=== PATIENT | female | born 1970 | race Caucasian/White ===

== ENCOUNTER 2022-05-29 09:29 | Emergency (ER) | payer MEDICARE, MEDICAID ==
[2022-05-29] MEDS ORDERED: Metoclopramide 10 MG/2 ML SDV IVPUSH ONE (10:08)
[2022-05-29] MEDS ORDERED: Pantoprazole 40 MG Vial IVPUSH ONE (10:09)
[2022-05-29] MEDS ORDERED: Dextrose 5%-Lactated Ringers 1,000 ML IV SCH (10:15)
[2022-05-29 10:35] LABS: ESTIMATED GFR 89 mL/min (>60)
[2022-05-29] MEDS ORDERED: Alum Hydrox/Mag Hydrox/Simeth 30 ML, Lidocaine 2% 15 ML PO ONE ×2 (11:00)
[2022-05-29] MEDS ORDERED: Famotidine 20 MG Tab PO ONE (11:29)
== END 2022-05-29 12:15 | disposition home or self-care (01) ==
LOC: JD.ED 09:29
DX: K31.89 Other diseases of stomach and duodenum (principal); R10.13 Epigastric pain; I10 Essential (primary) hypertension; J44.9 Chronic obstructive pulmonary disease, unspecified; Z88.0 Allergy status to penicillin
CPT/HCPCS: 36415; 80053; 83690; 83735; 85025; 85610; 85730; 86140; 93005; 96361; 96374; 96375; 99284; A9270; C9113; J2765; J7121

== ENCOUNTER 2022-10-20 10:33 | Emergency (ER) | payer MEDICAID, MEDICARE ==
[2022-10-20] MEDS ORDERED: Ondansetron 4 MG/2 ML SDV IVPUSH ONE (11:29)
[2022-10-20] MEDS ORDERED: Sodium Chloride 0.9% 10 ML Syringe FLUSH PRN (11:29)
[2022-10-20] MEDS ORDERED: Sodium Chloride 0.9% 1,000 ML IV SCH (11:30)
[2022-10-20 12:03] LABS: CORONAVIRUS COVID-19 NAA NEGATIVE (NEGATIVE)
[2022-10-20 12:12] LABS: ESTIMATED GFR 77 mL/min (>60)
== END 2022-10-20 14:23 | disposition home or self-care (01) ==
LOC: JD.ED 10:33
DX: J06.9 Acute upper respiratory infection, unspecified (principal); J44.9 Chronic obstructive pulmonary disease, unspecified; I10 Essential (primary) hypertension; Z88.0 Allergy status to penicillin; Z88.5 Allergy status to narcotic agent; Z90.49 Acquired absence of other specified parts of digestive tract; Z20.822 Contact with and (suspected) exposure to COVID-19
CPT/HCPCS: 0241U; 36415; 71045; 80053; 81001; 83735; 84443; 85025; 86140; 96361; 96374; 99284; J2405; J3490; J7030

== ENCOUNTER 2023-01-22 19:43 | Emergency (ER) | payer MEDICARE | END 2023-01-22 21:31 | disposition home or self-care (01) | LOC: JD.ED 19:43 | DX: M10.9 Gout, unspecified (principal); I10 Essential (primary) hypertension; J44.9 Chronic obstructive pulmonary disease, unspecified; Z88.0 Allergy status to penicillin; Z88.5 Allergy status to narcotic agent; Z79.899 Other long term (current) drug therapy | CPT/HCPCS: 99283 ==

== ENCOUNTER 2023-06-30 14:34 | Emergency (ER) | payer MEDICAID, MEDICARE ==
[2023-06-30] MEDS ORDERED: Sucralfate Suspension 1 GM/10 ML Cup PO ONE (15:40)
[2023-06-30] MEDS ORDERED: Ondansetron 4 MG Tab.DIS PO ONE (15:40)
== END 2023-06-30 17:00 | disposition home or self-care (01) ==
LOC: JD.ED 14:34
DX: R10.13 Epigastric pain (principal); I10 Essential (primary) hypertension; J44.9 Chronic obstructive pulmonary disease, unspecified; Z88.0 Allergy status to penicillin; Z88.5 Allergy status to narcotic agent
CPT/HCPCS: 99283; A9270

== ENCOUNTER 2024-03-09 22:02 | Observation (INO) | payer MEDICARE ==
[2024-03-09] MEDS ORDERED: Sodium Chloride 0.9% 10 ML Syringe FLUSH PRN (22:45)
[2024-03-09 22:56] LABS: BASOPHILS ABSOLUTE AUTO 0.1 K/mm3 (0.0-0.2); BASOPHILS PERCENT AUTO 0.6 % (0.0-1.0); EOSINOPHILS PERCENT AUTO 0.5 % (0.0-6.0); HEMOGLOBIN 11.2 gm/dl (12.0-16.0); IMMATURE GRAN ABSOLUTE AUTO 0.02 K/mm3 (0.00-0.05); IMMATURE GRAN PERCENT AUTO 0.2 % (0.0-0.4); LYMPHOCYTES ABSOLUTE AUTO 1.9 K/mm3 (1.0-4.8); LYMPHOCYTES PERCENT AUTO 23.4 % (24.0-44.0); MEAN CORPUSCULAR HEMOGLOBIN 23.8 pg (28.0-32.0); MEAN CORPUSCULAR HGB CONC 30.3 g/dl (32.0-36.0); MEAN CORPUSCULAR VOLUME 78.7 fl (83.0-99.0); MEAN PLATELET VOLUME 9.1 fl (9.4-12.3); MONOCYTES ABSOLUTE AUTO 0.5 K/mm3 (0.0-0.8); NEUTROPHILS ABSOLUTE AUTO 5.6 K/mm3 (1.8-7.7); NEUTROPHILS PERCENT AUTO 69.3 % (41.0-71.0); PLATELET COUNT,PLT 260 K/mm3 (150-400); WHITE BLOOD CELL COUNT,WBC 8.03 K/mm3 (3.9-11.3)
[2024-03-09] MEDS: Sodium Chloride 0.9% 1,000 ML IV STA (23:05)
[2024-03-09] MEDS: Iopamidol 612 MG/ML 100 ML Bottle IVPUSH ONE (23:05)
[2024-03-09] MEDS: HYDROmorphone 0.5 MG/0.5 ML Syringe IVPUSH ONE (23:05)
[2024-03-09] MEDS: Ondansetron 4 MG/2 ML SDV IVPUSH ONE (23:05)
[2024-03-09 23:33] LABS: A/G RATIO 1.2 (1-2); ALBUMIN 3.7 g/dl (3.4-5.0); ANION GAP 13.5 (5-15); BILIRUBIN TOTAL 0.3 mg/dL (0.2-1.0); BUN/CREATININE RATIO 15.6 (14-18); CALCIUM 9.3 mg/dL (8.5-10.1); CREATININE 0.9 mg/dL (0.55-1.02); EST CRCL DRUG DOSING (CG) 75.55 mL/min; POTASSIUM,K 3.5 mEq/L (3.5-5.1); PROTEIN TOTAL,TP 6.8 g/dl (6.4-8.2)
[2024-03-10] MEDS ORDERED: HYDROmorphone 0.5 MG/0.5 ML Syringe IVPUSH PRN (01:29)
[2024-03-10] MEDS ORDERED: Naloxone 0.4 MG/ML SDV IVPUSH PRN (01:29)
[2024-03-10] MEDS: Ondansetron 4 MG/2 ML SDV IVPUSH PRN (04:40)
[2024-03-10] MEDS: Sodium Chloride 0.9% 1,000 ML IV SCH (07:47)
[2024-03-10 10:18] LABS: APPEARANCE,URINE CLEAR (Clear); BILIRUBIN,URINE NEGATIVE (Negative); COLOR,URINE YELLOW (Yellow); GLUCOSE,URINE NEGATIVE (Negative); KETONES,URINE NEGATIVE (Negative); LEUKOCYTE ESTERASE,URINE NEGATIVE (Negative); NITRITE,URINE NEGATIVE (Negative); OCCULT BLOOD,URINE NEGATIVE (Negative); PH,URINE 6.5 (5.0-8.0); PROTEIN,URINE TRACE (Negative); UROBILINOGEN,URINE 0.2 (0.2-1.0)
[2024-03-10 10:35] LABS: BACTERIA,URINE FEW /hpf (FEW); EPITHELIAL CELLS,URINE 0-5 /hpf (0-5); MUCUS,URINE RARE /hpf (FEW); RBC,URINE 0-5 /hpf (0-5); WBC,URINE 0-5 /hpf (0-5)
== END 2024-03-10 10:54 | disposition left against medical advice (07) ==
LOC: JD.ED 22:02 → JD.MS 03-10 00:28
PROVIDERS: ADMIT Surgery; ATTEND Surgery
DX: K56.600 Partial intestinal obstruction, unspecified as to cause (principal); K43.9 Ventral hernia without obstruction or gangrene; I10 Essential (primary) hypertension; J44.9 Chronic obstructive pulmonary disease, unspecified; K21.9 Gastro-esophageal reflux disease without esophagitis; F32.A Depression, unspecified; F17.210 Nicotine dependence, cigarettes, uncomplicated; Z79.899 Other long term (current) drug therapy; Z88.0 Allergy status to penicillin; Z88.5 Allergy status to narcotic agent
CPT/HCPCS: 36415; 74177; 80053; 81001; 83690; 85025; J1170; J2405; J7030; Q9967; 96361; 96374; 96375; 96376; 99285-25; G0378

== ENCOUNTER 2024-11-04 21:21 | Emergency (ER) | payer MEDICARE ==
[2024-11-04] MEDS ORDERED: Naloxone 0.4 MG/ML SDV IVPUSH PRN ×2 (22:10→23:23)
[2024-11-04] MEDS ORDERED: Sodium Chloride 0.9% 10 ML Syringe FLUSH PRN (22:11)
[2024-11-04] MEDS: Ondansetron 4 MG/2 ML SDV IVPUSH ONE ×2 (22:19→23:27)
[2024-11-04] MEDS: Sodium Chloride 0.9% 1,000 ML IV ONE (22:23)
[2024-11-04] MEDS: Morphine 4 MG/ML Syringe IVPUSH ONE (22:23)
[2024-11-04 22:26] LABS: BASOPHILS ABSOLUTE AUTO 0.1 K/mm3 (0.0-0.2); BASOPHILS PERCENT AUTO 0.3 % (0.0-1.0); HEMATOCRIT 47.4 % (37.0-47.0); HEMOGLOBIN 16.4 gm/dl (12.0-16.0); IMMATURE GRAN ABSOLUTE AUTO 0.14 K/mm3 (0.00-0.05); IMMATURE GRAN PERCENT AUTO 0.7 % (0.0-0.4); LYMPHOCYTES ABSOLUTE AUTO 2.1 K/mm3 (1.0-4.8); MEAN CORPUSCULAR HEMOGLOBIN 29.2 pg (28.0-32.0); MEAN CORPUSCULAR HGB CONC 34.6 g/dl (32.0-36.0); MEAN CORPUSCULAR VOLUME 84.5 fl (83.0-99.0); MEAN PLATELET VOLUME 9.2 fl (9.4-12.3); MONOCYTES ABSOLUTE AUTO 1.4 K/mm3 (0.0-0.8); MONOCYTES PERCENT AUTO 6.8 % (0.0-8.0); NEUTROPHILS PERCENT AUTO 82.2 % (41.0-71.0); PLATELET COUNT,PLT 415 K/mm3 (150-400); RED BLOOD CELL COUNT 5.61 M/mm3 (4.10-5.30); WHITE BLOOD CELL COUNT,WBC 20.64 K/mm3 (3.9-11.3)
[2024-11-04 22:33] LABS: INR 0.99; PROTHROMBIN TIME 10.5 SECONDS (9.7-12.0)
[2024-11-04 22:34] LABS: PTT,PARTIAL THROMBOPLSTIN TIME 26.2 SECONDS (21.7-31.4)
[2024-11-04 22:39] LABS: ALBUMIN 3.8 g/dl (3.4-5.0); ANION GAP 18.3 (5-15); BILIRUBIN TOTAL 1.1 mg/dL (0.2-1.0); BUN/CREATININE RATIO 31.3 (14-18); CALCIUM 9.2 mg/dL (8.5-10.1); CREATININE 0.8 mg/dL (0.55-1.02); EST CRCL DRUG DOSING (CG) 84.01 mL/min; MAGNESIUM 1.4 mg/dL (1.8-2.4); PHOSPHORUS 3.5 mg/dL (2.6-4.7); POTASSIUM,K 4.3 mEq/L (3.5-5.1); PROTEIN TOTAL,TP 7.5 g/dl (6.4-8.2)
[2024-11-04] MEDS: Pantoprazole 40 MG Vial IVPUSH ONE (23:15)
[2024-11-04] MEDS: HYDROmorphone 0.5 MG/0.5 ML Syringe IVPUSH ONE (23:27)
[2024-11-05] MEDS: Iopamidol 612 MG/ML 30 ML SDV IVPUSH ONE (00:07)
[2024-11-05] MEDS: Iopamidol 612 MG/ML 100 ML Bottle IVPUSH ONE (00:07)
[2024-11-05] MEDS: Pantoprazole 80 MG in Sodium Chloride 0.9% 100 ML IV SCH (00:23)
[2024-11-05] MEDS ORDERED: Naloxone 0.4 MG/ML SDV IVPUSH PRN (01:03)
[2024-11-05] MEDS: Prochlorperazine 10 MG in Sodium Chloride 0.9% 50 ML IV ONE (01:40)
[2024-11-05] MEDS: Prochlorperazine 10 MG/2 ML SDV IVPUSH ONE (01:47)
[2024-11-05] MEDS: Sodium Chloride 0.9% 1,000 ML IV ONE (01:47)
[2024-11-05] MEDS: droPERidol 5 MG/2 ML SDV IVPUSH ONE (01:50)
[2024-11-05] MEDS: HYDROmorphone 0.5 MG/0.5 ML Syringe IVPUSH ONE (01:51)
[2024-11-05] MEDS: metroNIDAZOLE/Normal Saline 500 MG in Premix Bag 1 BAG IV ONE ×2 (02:03→05:20)
[2024-11-05 02:04] LABS: APPEARANCE,URINE CLEAR (Clear); BILIRUBIN,URINE 2+ (Negative); COLOR,URINE DARK YELLOW (Yellow); GLUCOSE,URINE NEGATIVE (Negative); KETONES,URINE 2+ (Negative); LEUKOCYTE ESTERASE,URINE NEGATIVE (Negative); NITRITE,URINE NEGATIVE (Negative); OCCULT BLOOD,URINE NEGATIVE (Negative); PROTEIN,URINE 2+ (Negative)
[2024-11-05 02:15] LABS: BACTERIA,URINE NOT SEEN /hpf (FEW); EPITHELIAL CELLS,URINE 0-5 /hpf (0-5); MUCUS,URINE NOT SEEN /hpf (FEW); RBC,URINE 0-5 /hpf (0-5); WBC,URINE 0-5 /hpf (0-5)
[2024-11-05] MEDS: Lidocaine 2% 11 ML Jelly Filled Syringe MUCMEM STA (02:49)
[2024-11-05] MEDS: Benzocaine 20% Topical Spray UD MUCMEM ONE (02:49)
[2024-11-05 02:54] LABS: BASOPHILS PERCENT AUTO 0.3 % (0.0-1.0); HEMATOCRIT 44.9 % (37.0-47.0); HEMOGLOBIN 15.1 gm/dl (12.0-16.0); IMMATURE GRAN ABSOLUTE AUTO 0.03 K/mm3 (0.00-0.05); IMMATURE GRAN PERCENT AUTO 0.3 % (0.0-0.4); LYMPHOCYTES ABSOLUTE AUTO 0.9 K/mm3 (1.0-4.8); LYMPHOCYTES PERCENT AUTO 7.7 % (24.0-44.0); MEAN CORPUSCULAR HEMOGLOBIN 29.2 pg (28.0-32.0); MEAN CORPUSCULAR HGB CONC 33.6 g/dl (32.0-36.0); MEAN CORPUSCULAR VOLUME 86.7 fl (83.0-99.0); MEAN PLATELET VOLUME 8.8 fl (9.4-12.3); MONOCYTES ABSOLUTE AUTO 0.3 K/mm3 (0.0-0.8); MONOCYTES PERCENT AUTO 2.7 % (0.0-8.0); NEUTROPHILS ABSOLUTE AUTO 10.2 K/mm3 (1.8-7.7); PLATELET COUNT,PLT 318 K/mm3 (150-400); RED BLOOD CELL COUNT 5.18 M/mm3 (4.10-5.30); WHITE BLOOD CELL COUNT,WBC 11.44 K/mm3 (3.9-11.3)
[2024-11-05] MEDS: Lactated Ringers 1,000 ML IV ONE (03:01)
[2024-11-05] MEDS: Lidocaine 2% Jelly 5 ML Tube TOP ONE (03:04)
[2024-11-05] MEDS: Lidocaine 2% 11 ML Jelly Filled Syringe ONE (03:05)
[2024-11-05 03:18] LABS: LACTIC ACID 1.7 mmol/L (0.4-2.0)
[2024-11-05 03:25] LABS: A/G RATIO 0.9 (1-2); ANION GAP 17.8 (5-15); BILIRUBIN TOTAL 2.1 mg/dL (0.2-1.0); BUN/CREATININE RATIO 41.8 (14-18); CALCIUM 8.2 mg/dL (8.5-10.1); CREATININE 1.1 mg/dL (0.55-1.02); EST CRCL DRUG DOSING (CG) 61.1 mL/min; POTASSIUM,K 3.8 mEq/L (3.5-5.1); PROTEIN TOTAL,TP 6.2 g/dl (6.4-8.2)
[2024-11-05] MEDS: Clindamycin Phosphate in D5W 900 MG in Premix Bag 1 BAG IV ONE (04:15)
[2024-11-05 04:51] LABS: A/G RATIO 0.9 (1-2); ALBUMIN 2.8 g/dl (3.4-5.0); ANION GAP 16.7 (5-15); BILIRUBIN TOTAL 1.6 mg/dL (0.2-1.0); CALCIUM 8.2 mg/dL (8.5-10.1); EST CRCL DRUG DOSING (CG) 67.21 mL/min; POTASSIUM,K 3.7 mEq/L (3.5-5.1); PROTEIN TOTAL,TP 5.8 g/dl (6.4-8.2)
[2024-11-05] MEDS: VANCOmycin 2 GM/400 ML 2 GM in Premix Bag 1 BAG IV ONE (05:21)
[2024-11-05] MEDS: Sodium Chloride 0.9% 500 ML ONE (09:33)
== END 2024-11-05 16:25 ==
LOC: JD.ED 21:21
DX: K56.609 Unspecified intestinal obstruction, unspecified as to partial versus complete obstruction (principal); K92.2 Gastrointestinal hemorrhage, unspecified; I10 Essential (primary) hypertension; J44.9 Chronic obstructive pulmonary disease, unspecified; E66.9 Obesity, unspecified; Z79.899 Other long term (current) drug therapy; Z88.0 Allergy status to penicillin; Z88.5 Allergy status to narcotic agent; Z88.8 Allergy status to other drugs, medicaments and biological substances; Z68.41 Body mass index [BMI] 40.0-44.9, adult
CPT/HCPCS: 36415; 36430; 43752; 71045; 71260; 74177; 80053; 81001; 83605; 83690; 83735; 84100; 85018; 85025; 85610; 85730; 86850; 86900; 86901; 86922; 87040; 93005; 96361; 96365; 96366; 96368; 96375; 96376; 99285; A9270; J0736; J0780; J1836; J2270; J2405; J2470; J3475; J3490; J7030; J7120; P9016; Q9967; 93010

== ENCOUNTER 2025-09-28 14:45 | Emergency (ER) | payer MEDICARE ==
[2025-09-28 16:41] LABS: BASOPHILS ABSOLUTE AUTO 0.1 K/mm3 (0.0-0.2); BASOPHILS PERCENT AUTO 0.6 % (0.0-1.0); EOSINOPHILS ABSOLUTE AUTO 0.0 K/mm3 (0.0-0.4); EOSINOPHILS PERCENT AUTO 0.5 % (0.0-6.0); IMMATURE GRAN ABSOLUTE AUTO 0.04 K/mm3 (0.00-0.05); IMMATURE GRAN PERCENT AUTO 0.5 % (0.0-0.4); LYMPHOCYTES ABSOLUTE AUTO 1.9 K/mm3 (1.0-4.8); LYMPHOCYTES PERCENT AUTO 21.6 % (24.0-44.0); MEAN PLATELET VOLUME 8.9 fl (9.4-12.3); MONOCYTES ABSOLUTE AUTO 0.5 K/mm3 (0.0-0.8); MONOCYTES PERCENT AUTO 5.7 % (0.0-8.0); NEUTROPHILS ABSOLUTE AUTO 6.3 K/mm3 (1.8-7.7); NEUTROPHILS PERCENT AUTO 71.1 % (41.0-71.0); NRBC ABSOLUTE 0.00 (0.00-0.02); NRBC PERCENT 0.0 % (0.0-0.2); PLATELET COUNT,PLT 211 K/mm3 (150-400); RED BLOOD CELL COUNT 4.68 M/mm3 (4.10-5.30); WHITE BLOOD CELL COUNT,WBC 8.84 K/mm3 (3.9-11.3)
[2025-09-28 17:11] LABS: A/G RATIO 1.2 (1-2); ALANINE AMINOTRANSFERASE,ALT 29.0 U/L (14-59); ASPARTATE AMNIOTRANSFERASE,AST 18.0 U/L (15-37); BILIRUBIN TOTAL 0.5 mg/dL (0.2-1.0); BLOOD UREA NITROGEN,BUN 15.0 mg/dL (7-18); CARBON DIOXIDE,CO2 25.0 mEq/L (21-32); CHLORIDE,CL 108.0 mEq/L (98-107); CREATININE 1.0 mg/dL (0.55-1.02); EST CRCL DRUG DOSING (CG) 66.43 mL/min; ESTIMATED GFR 67.0 mL/min (>60); GLUCOSE RANDOM 90.0 mg/dL (70-99); POTASSIUM,K 4.4 mEq/L (3.5-5.1); PROTEIN TOTAL,TP 6.7 g/dl (6.4-8.2); SODIUM,NA 142.0 mEq/L (136-145)
[2025-09-28] MEDS: Iopamidol 612 MG/ML 100 ML Bottle IVPUSH ONE (17:33)
[2025-09-28] MEDS: Sodium Chloride 0.9% 10 ML Syringe FLUSH ONE (17:33)
== END 2025-09-28 18:50 | disposition home or self-care (01) ==
LOC: JD.ED 14:45
DX: R10.32 Left lower quadrant pain (principal); I10 Essential (primary) hypertension; J44.9 Chronic obstructive pulmonary disease, unspecified; E66.9 Obesity, unspecified; F17.200 Nicotine dependence, unspecified, uncomplicated; K21.9 Gastro-esophageal reflux disease without esophagitis; Z79.899 Other long term (current) drug therapy; Z88.0 Allergy status to penicillin; Z88.5 Allergy status to narcotic agent; Z88.8 Allergy status to other drugs, medicaments and biological substances; Z68.41 Body mass index [BMI] 40.0-44.9, adult; X50.0XXA Overexertion from strenuous movement or load, initial encounter
CPT/HCPCS: 36415; 74177; 76705; 80053; 85025; 99284; Q9967

== ENCOUNTER 2025-10-02 20:40 | Emergency (ER) | payer MEDICARE ==
[2025-10-02] MEDS: Acetaminophen/oxyCODONE 325-5 MG Tab PO ONE (21:53)
[2025-10-02] MEDS: Ondansetron 4 MG Tab.DIS PO ONE (21:54)
== END 2025-10-02 22:00 | disposition home or self-care (01) ==
LOC: JD.ED 20:40
DX: R10.32 Left lower quadrant pain (principal); E65 Localized adiposity; I10 Essential (primary) hypertension; J44.9 Chronic obstructive pulmonary disease, unspecified; E66.9 Obesity, unspecified; Z68.41 Body mass index [BMI] 40.0-44.9, adult; Z87.19 Personal history of other diseases of the digestive system; Z98.84 Bariatric surgery status; Z90.49 Acquired absence of other specified parts of digestive tract; Z88.0 Allergy status to penicillin; Z88.5 Allergy status to narcotic agent; Z88.8 Allergy status to other drugs, medicaments and biological substances; Z79.01 Long term (current) use of anticoagulants; Z79.899 Other long term (current) drug therapy
CPT/HCPCS: 99284; A9270